=== PATIENT | male | born 1950 | race Hispanic/Latino ===

== ENCOUNTER → 2017-09-30 | Outpatient (CLI) | payer MEDICARE ==
[~2017-09-30] MED LIST: AZELASTINE HCL6 ML OS; ESIDRIX25 MG PO; FLOVENT DISKUS50 MCG; GARLIC1000 MG PO; SIMVASTATIN20 MG PO; VICODIN 5-5001 EACH PO
--- NOTE | 2017-09-30 14:52 | Diagnostic Imaging Report ---
PROCEDURE: Frontal and lateral views of the chest. COMPARISON: Chest radiograph 12/16/2014. INDICATIONS: COPD FINDINGS: Lines/tubes: None. Lungs: Low lung volumes. No evidence of pulmonary edema. There is linear subsegmental atelectasis at the right lung base. Mild patchy opacities are present in the left lung base. Pleura: There is no pleural effusion or pneumothorax. Heart and mediastinum: The cardiomediastinal silhouette is unremarkable. Bones: No acute bony abnormality. IMPRESSION: Patchy opacities at the left lung base, which may reflect atelectasis or pneumonia in the appropriate clinical setting. Subsegmental atelectasis at the right lung base. Dictated by: MARK VILLALTA M.D. on 09/30/2017 at 10:49 Electronically approved by: MARK VILLALTA M.D. on 09/30/2017 at 10:49
--- NOTE | 2017-09-30 14:52 | Diagnostic Imaging Report ---
PROCEDURE:X-RAY LEFT KNEE, THREE OR MORE VIEWS COMPARISON:None. INDICATIONS:OSTEOARTHRITIS LEFT KNEE FINDINGS: The bones are well-mineralized. No evidence of fracture or malalignment. Mild joint space narrowing is present in the medial and patellofemoral compartments with bony osteophyte formation. Small suprapatellar joint effusion. CONCLUSION: Mild medial and patellofemoral compartment osteoarthritis. Small suprapatellar joint effusion. Dictated by: MARK VILLALTA M.D. on 09/30/2017 at 10:52 Electronically approved by: MARK VILLALTA M.D. on 09/30/2017 at 10:52
== END ==
LOC: RAD 09:50
PROVIDERS: ATTEND Specialist
DX: J44.9 Chronic obstructive pulmonary disease, unspecified (principal); M17.12 Unilateral primary osteoarthritis, left knee
CPT/HCPCS: 71046

== ENCOUNTER → 2017-12-15 | Outpatient (CLI) | payer MEDICARE, OTHER ==
--- NOTE | 2017-12-15 17:47 | Diagnostic Imaging Report ---
Examination: CT Face without Contrast History: Facial pressure. Cough. Comparison studies: None Technique: Axial images were obtained through the maxillofacial region. Coronal and sagittal reconstructions obtained from the axial data. Dose modulation, iterative reconstruction, and/or weight based adjustment of the mA/kV was utilized to reduce the radiation dose to as low as reasonably achievable. Intravenous contrast: None Findings: Soft tissues: No abnormalities. Bones: No fractures or bony abnormalities. Orbits: Globes: Intact Extra or intraconal abnormalities: None. Paranasal sinuses: Mild inflammatory mucosal thickening of the bilateral maxillary and sphenoid sinuses and bilateral ethmoid air cells. Focal obstruction at the ostia of the bilateral ostiomeatal units and sphenoethmoidal recesses. Nasal cavity: Rightward deviation (5 mm). IMPRESSION: 1. No acute facial abnormality. 2. Mild inflammatory mucosal thickening of the bilateral maxillary and sphenoid sinuses and ethmoid air cells. Signed by: Dr. Yadira Hoff M.D. on 12/15/2017 5:44 PM
== END ==
LOC: CT 16:33
PROVIDERS: ATTEND Internal Medicine Critical Care Medicine
DX: R05 Cough (principal); J01.80 Other acute sinusitis
CPT/HCPCS: 70486

== ENCOUNTER → 2018-09-16 | Outpatient (CLI) | payer MEDICARE, OTHER ==
[~2018-09-16] MED LIST changes: +IOPAMIDOL 370 MG/ML 200 ML INFUS..BTL INJ ONE; +SODIUM CHLORIDE 0.9% 50ML 50 ML ONE
[2018-09-16 14:42] LABS: BLOOD UREA NITROGEN 13 mg/dL (7-26); BUN/CREATININE RATIO 15 (6-25); CREATININE, SERUM 0.89 mg/dL (0.72-1.25); EST GLOMERULAR FILTRATION RATE > 60 ML/MIN (60-)
--- NOTE | 2018-09-16 17:42 | Diagnostic Imaging Report ---
Examination:CT SOFT TISSUE NECK WITH CONTRAST History: Lump in the right anterior neck Comparison studies: None Technique: Axial images from the skull base to the thoracic inlet Coronal and sagittal reformatted images. Dose modulation, iterative reconstruction, and/or weight based adjustment of the mA/kV was utilized to reduce the radiation dose to as low as reasonably achievable. Intravenous contrast: 100mL of Isovue 370. Findings: Soft tissues: No abnormalities. Aerodigestive tract: No abnormality. Lymph nodes: No radiographically significant adenopathy. Vessels: Arteries and veins are patent. Thyroid gland: Normal in size and homogeneous. Submandibular glands: Normal in size and homogeneous. Parotid glands: Normal in size and homogeneous. Orbits: No abnormalities. Paranasal sinuses: Clear. Temporal bones: No abnormalities. Skull base and facial bones: Intact. Cervical spine: C5-C: Diffuse disc osteophyte complex and mild bilateral uncovertebral arthropathy result in moderate to severe bilateral foraminal stenosis. No canal stenosis. The remaining cervical level demonstrate no disc bulge or herniation or foraminal or canal stenosis. Visualized lung apices: No abnormalities. IMPRESSION: 1. No lesion in the right neck. 2. Mild degenerative changes at C5-C6 with moderate to severe bilateral foraminal stenosis. No canal stenosis. Signed by: Dr. Yadira Hoff M.D. on 09/16/2018 5:39 PM
== END ==
LOC: CT 13:52
PROVIDERS: ATTEND Specialist
DX: R22.1 Localized swelling, mass and lump, neck (principal)
CPT/HCPCS: 36415; 70491; 82565; 84520; Q9967

== ENCOUNTER 2019-09-16 20:48 | Emergency (ER) | payer MEDICARE, OTHER ==
[~2019-09-16] VITALS: Ht 182.9 cm; Wt 111.1 kg
[~2019-09-16 20:48] MED LIST changes: -IOPAMIDOL 370 MG/ML 200 ML INFUS..BTL INJ ONE; -SODIUM CHLORIDE 0.9% 50ML 50 ML ONE
--- NOTE | 2019-09-16 20:53 | Emergency Department Note ---
History of Present Illnes History of Present Illness History of Present Illness This is a 68 year old male sent by PCP for evaluation possible COVID-19 infection. Spouse with positive results . Past Medical/Family History Physician Review I have reviewed the patient's past medical and family history. Any updates have been documented here. Past Medical History Other Medical History: LYPHEDEMA HIGH CHOLESTEROL Other Surgery: LEFT ROTATOR CUFF LEFT KNEE SURGERY BILATERAL CARPAL TUNNEL TONSILECTOMY Other Last Tetanus: UTD Physical Exam Related Data Allergies: Coded Allergies: No Known Allergies (Unverified , 05/26/12) Physical Exam CONSTITUTIONAL Constitutional: Present well-developed, Present well-nourished, Present ill appearing HENT HENT: Present normocephalic, Present atraumatic, Present oropharynx ilana r/moist, Present nose normal HENT L/R: Present left ext ear normal, Present right ext ear normal EYES Eyes: Reports PERRL, Reports conjunctivae normal NECK Neck: Present ROM normal PULMONARY Pulmonary: Present effort normal, Present breath sounds normal CARDIOVASCULAR Cardiovascular: Present regular rhythm, Present heart sounds normal, Present capillary refill normal, Present normal rate GASTROINTESTINAL Abdominal: Present soft, Present nontender, Present bowel sounds normal GENITOURINARY Genitourinary: Present exam deferred SKIN Skin: Present warm, Present dry MUSCULOSKELETAL Musculoskeletal: Present ROM normal NEUROLOGICAL Neurological: Present alert, Present oriented x 3, Present no gross motor or sensory deficits PSYCHOLOGICAL Psychological: Present mood/affect normal, Present judgement normal Results Imaging Imaging results reviewed: Yes Impressions [place] [id number] Patient Name: TAWANA BETANCUR MR #: [id number] : 1950 Age/Sex: 68/M Req #: [id number] Adm Physician: Ordered by: SERA BENZ DO Report #: [id number] Location: Room/Bed: Procedure: [id number] DX/CHEST SINGLE (PORTABLE) Exam Date: 09/16/19 Exam Time: 0 REPORT STATUS: Signed EXAMINATION: CHEST SINGLE (PORTABLE) INDICATION: Shortness of breath COMPARISON: None FINDINGS: AP view TUBES and LINES: None. LUNGS: Subtle left lower lobe airspace consolidation. The right lung is grossly clear. PLEURA: No pleural effusion or pneumothorax. HEART AND MEDIASTINUM: The cardiomediastinal silhouette is unremarkable. BONES AND SOFT TISSUES: No acute osseous lesion. Soft tissues are unremarkable. UPPER ABDOMEN: No free air under the diaphragm. IMPRESSION: Subtle left lower lobe airspace consolidation suggestive of pneumonia. A follow-up chest x-ray is recommended in 6 weeks to document resolution. Signed by: Cornel Mcarthur MD on 09/16/2019 10:46 PM Dictated By: CORNEL MCARTHUR MD 45 Transcribed By: KRYSTAL on 09/16/192245 COPY TO: SERA BENZ DO~ Procedures 12 Lead ECG Interpretation ECG Interpretation : ECG: ECG 1 Supervisor Network Control Operators: Interpreted by ED physician Date: Sep 16, 2019 Time: 21:56 Prior ECG tracings: reviewed Rhythm: sinus rhythm Rate: normal BPM: 85 ST segments normal: Yes T waves normal: Yes Pacin% capture Clinical Impression: normal ECG Assessment & Plan Assessment & Plan Final Impression: (1) Hypoxia Home Meds Reported Medications Fluticasone Propionate (FLOVENT DISKUS) 50 Mcg Disk.w.dev 05/26/12 Azelastine Hcl (AZELASTINE HCL) 6 Ml Drops, OS BID 05/26/12 Garlic (GARLIC) 1,000 Mg Capsule, 1000 MG PO DAILY 05/26/12 Simvastatin (SIMVASTATIN) 20 Mg Tablet, 20 MG PO DAILY 05/26/12 Hydrochlorothiazide* (ESIDRIX*) 25 Mg Tab, 75 MG PO DAILY 05/26/12 Hydrocodone Bit/Acetaminophen* (VICODIN 5-500 TABLET*) 1 Each Tablet, 5 MG PO PRN 05/26/12 SERA BENZ DO Sep 16, 2019 20:53
[2019-09-16] MEDS ORDERED: ASPIRIN 81 MG CHEW TAB PO ONE (21:45)
[2019-09-16] MEDS ORDERED: ACETAMINOPHEN 325 MG TAB ONE (21:54)
[2019-09-16 22:02] LABS: BASOPHILS % 0.1 % (0.0-1.0); HEMATOCRIT 46.4 % (38.2-49.6); HEMOGLOBIN 15.6 g/dL (14.0-18.0); LYMPHOCYTES # (AUTO) 0.8 (1.0-3.2); MEAN CORPUSCULAR HEMOGLOBIN 30.1 pg (28-32); MEAN CORPUSCULAR HGB CONC 33.6 g/dL (31-35); MEAN CORPUSCULAR VOLUME 89.4 fL (81-99); MONOCYTES # (AUTO) 0.6 (0.2-0.8); MONOCYTES % 8.4 % (4.4-11.3); NEUTROPHILS # (AUTO) 5.5 (2.1-6.9); NEUTROPHILS % 80.1 % (38.7-80.0); PLATELET COUNT 150 x10e3/uL (140-360); RED BLOOD COUNT 5.19 x10e6/uL (4.3-5.7); RED CELL DISTRIBUTION WIDTH 13.3 % (11.7-14.4)
[2019-09-16 22:19] LABS: ALANINE AMINOTRANSFERASE 38 IU/L (0-55); ALBUMIN 3.6 g/dL (3.5-5.0); ALBUMIN/GLOBULIN RATIO 1.1 (0.8-2.0); ALKALINE PHOSPHATASE 57 IU/L (40-150); ANION GAP 14.9 mmol/L (8-16); BLOOD UREA NITROGEN 17 mg/dL (7-26); BUN/CREATININE RATIO 18 (6-25); CALCIUM 9.1 mg/dL (8.4-10.2); CARBON DIOXIDE 27 mmol/L (22-29); CHLORIDE 98 mmol/L (98-107); CREATINE KINASE 386 IU/L (30-200); CREATININE, SERUM 0.96 mg/dL (0.72-1.25); EST GLOMERULAR FILTRATION RATE > 60 ML/MIN (60-); GLUCOSE 105 mg/dL (74-118); POTASSIUM 3.9 mmol/L (3.5-5.1); SODIUM 136 mmol/L (136-145)
--- NOTE | 2019-09-16 22:49 | Diagnostic Imaging Report ---
EXAMINATION: CHEST SINGLE (PORTABLE) INDICATION: Shortness of breath COMPARISON: None FINDINGS: AP view TUBES and LINES: None. LUNGS: Subtle left lower lobe airspace consolidation. The right lung is grossly clear. PLEURA: No pleural effusion or pneumothorax. HEART AND MEDIASTINUM: The cardiomediastinal silhouette is unremarkable. BONES AND SOFT TISSUES: No acute osseous lesion. Soft tissues are unremarkable. UPPER ABDOMEN: No free air under the diaphragm. IMPRESSION: Subtle left lower lobe airspace consolidation suggestive of pneumonia. A follow-up chest x-ray is recommended in 6 weeks to document resolution. Signed by: Fitz Mcgowan MD on 09/16/2019 10:46 PM
[2019-09-17] MEDS ORDERED: AZITHROMYCIN 250 MG TAB PO STA (01:46)
[2019-09-17 01:58] VITALS: BP 104/72
[2019-09-17] MEDS ORDERED: ACETAMINOPHEN 325 MG TAB PO ONE (02:15)
[2019-09-17] MEDS ORDERED: AZITHROMYCIN 250 MG TAB ONE (02:21)
--- NOTE | 2019-09-23 15:49 | NUR ---
Pt informed of positive results by Dr. Flores.
== END 2019-09-17 02:31 | disposition home or self-care (01) ==
LOC: ER 21:00
DX: U07.1 COVID-19 (principal); R50.9 Fever, unspecified; R09.02 Hypoxemia; R05 Cough
CPT/HCPCS: 36415; 71045; 80053; 82550; 82553; 83880; 84484; 85025; 87635; 93005; 99284

== ENCOUNTER 2019-09-20 13:03 | Emergency (ER) | payer MEDICARE, OTHER ==
[~2019-09-20] VITALS: Ht 182.9 cm; Wt 111.1 kg
--- NOTE | 2019-09-20 14:09 | Emergency Department Note ---
History of Present Illnes History of Present Illness Chief Complaint: COVID PUI History of Present Illness This is a 68 year old male arrives to the ED with continued cough, patient tested positive Covid 19. Patient states feels a history of COPD, is not on home oxygen. Patient states the coughing got worse which prompted him to the emergency department. Arrival Mode: Car Onset (how long ago): day(s) Severity: mild Onset quality: gradual Timing of current episode: constant Treatments prior to arrival: none Past Medical/Family History Physician Review I have reviewed the patient's past medical and family history. Any updates have been documented here. Past Medical History Recent Fever: Yes Clinical Suspicion of Infectio: Yes New/Unexplained Change in Ment: No Past Medical History: Hypertension, COPD, Asthma, Cancer, Hyperlipedemia Other Medical History: PROSTATE CANCER Past Surgical History: Knee Replacement, Back Surgery Other Surgery: BILATERAL WRIST LEFT KNEE LEFT SHOULDER Social History Physically hurt or threatened: No Other Last Tetanus: UTD Review of Systems Review of Systems Constitutional: Reports as per HPI, Reports chills, Reports fever EENTM: Reports no symptoms Cardiovascular: Reports no symptoms Respiratory: Reports as per HPI, Reports cough Gastrointestinal: Reports no symptoms Genitourinary: Reports no symptoms Musculoskeletal: Reports no symptoms Integumentary: Reports no symptoms Neurological: Reports no symptoms Psychological: Reports no symptoms Endocrine: Reports no symptoms Hematological/Lymphatic: Reports no symptoms Physical Exam Related Data Allergies: Coded Allergies: No Known Allergies (Unverified , 05/26/12) Triage Vital Signs Vital Signs Date Time Temp Pulse Resp B/P (MAP) Pulse Ox O2 Delivery O2 Flow Rate FiO2 09/20/19 13:17 99.6 89 24 113/74 91 Room Air Vital signs reviewed: Yes Physical Exam CONSTITUTIONAL Constitutional: Present well-developed, Present well-nourished HENT HENT: Present normocephalic, Present atraumatic, Present oropharynx clear/moist, Present nose normal HENT L/R: Present left ext ear normal, Present right ext ear normal EYES Eyes: Reports PERRL, Reports conjunctivae normal NECK Neck: Present ROM normal PULMONARY Pulmonary: Present effort normal, Present breath sounds normal CARDIOVASCULAR Cardiovascular: Present regular rhythm, Present heart sounds normal, Present capillary refill normal, Present normal rate GASTROINTESTINAL Abdominal: Present soft, Present nontender, Present bowel sounds normal GENITOURINARY Genitourinary: Present exam deferred SKIN Skin: Present warm, Present dry MUSCULOSKELETAL Musculoskeletal: Present ROM normal NEUROLOGICAL Neurological: Present alert, Present oriented x 3, Present no gross motor or sensory deficits PSYCHOLOGICAL Psychological: Present mood/affect normal, Present judgement normal Results Imaging Imaging results reviewed: Yes Assessment & Plan Medical Decision Making MDM 66-year-old well-appearing male arrives to the ED with complaints of cough fever loss of taste and smell. Patient has a known diagnosis of Covid 19. PPatient's oxygen saturation 91% even on exertion, no evidence of tachypnea or dyspnea noted in the ED. Spoke present length about the importance of sleeping on his stomach and rotating from side to side. Z-Slime given, signs and symptoms for return discussed. Case management evaluation done emergency department- home O2 was given. Patient did not wish to be admitted to the hospital. Patient's aoc plans intelligence officer chief Dr. Leyva informed In the light of the Covid pandemic, disaster medicine care was given- Patient's imaging reviewed,- chest x-ray shows questionable patchy airspace opacities . Patient clinically appears well, outpatient pulmonary follow-up given. The red flags for return to emergency department given. Patient understands the emergency department is open at all times to serve his needs as well as the needs of the community and given that he requires no supplemental oxygen and is speaking in full sentences with no distress he is stable to go home and quarantine. Assessment & Plan Final Impression: (1) COVID-19 Depart Disposition: HOME, SELF-CARE Last Vital Signs Date Time Temp Pulse Resp B/P (MAP) Pulse Ox O2 Delivery O2 Flow Rate FiO2 09/20/19 13:17 99.6 89 24 113/74 91 Room Air Home Meds Active Scripts Azithromycin (Z-SLIME) 250 Mg Tablet, 1 PKG PO DIRECTED, #1 PKG 0 Refills Prov:SANDHIR, AMBICA, DO 09/20/19 Dexamethasone (Decadron) 6 Mg Tablet, 6 MG PO DAILY, #5 Prov:SANDHIR, AMBICA, DO 09/20/19 Reported Medications Fluticasone Propionate (FLOVENT DISKUS) 50 Mcg Disk.w.dev 05/26/12 Azelastine Hcl (AZELASTINE HCL) 6 Ml Drops, OS BID 05/26/12 Garlic (GARLIC) 1,000 Mg Capsule, 1000 MG PO DAILY 3/12/13 Simvastatin (SIMVASTATIN) 20 Mg Tablet, 20 MG PO DAILY 05/26/12 Hydrochlorothiazide* (ESIDRIX*) 25 Mg Tab, 75 MG PO DAILY 05/26/12 Hydrocodone Bit/Acetaminophen* (VICODIN 5-500 TABLET*) 1 Each Tablet, 5 MG PO PRN 05/26/12 KAMI ESTES, Sep 20, 2019 14:09
--- NOTE | 2019-09-20 14:37 | NUR ---
CALLED BY DR ESTES TO ARRANGE HOME 02 ON THIS PT SATS 88% ON ROOM AIR CHOICE LETTER SIGNED BY PT AND COPY TO PT ALONG WITH MY BUSINESS CARD CALLED AND [facility]ED ORDERS TO [facility] PH: [phone] CONFIRMATION REC'D CONFIRMED PT'S ADDRESS AND PHONE NUMBER CORRECT EXPLAINED TO PT TO CALL [employer] WHEN HE GETS HOME FOR CONCENTRATOR DELIVERY PROVIDED PT WITH PORTABLE 02 TO GET HOME
[2019-09-20] MEDS ORDERED: AZITHROMYCIN250 MG PO (14:42)
[2019-09-20] MEDS ORDERED: DECADRON6 MG PO (14:42)
--- NOTE | 2019-09-20 16:02 | Diagnostic Imaging Report ---
EXAMINATION: CHEST SINGLE (PORTABLE) INDICATION: Pneumonia COMPARISON: Chest radiograph 09/16/2019 FINDINGS: LINES/TUBES:None LUNGS:Left greater than right bibasilar patchy opacities. PLEURA:No pleural effusion or pneumothorax. MEDIASTINUM:The cardiomediastinal silhouette appears normal in size and shape. BONES/SOFT TISSUES:No acute osseous injury. ABDOMEN:No free air under the diaphragm. IMPRESSION: Left greater than right bibasilar patchy opacities may represent subsegmental atelectasis however superimposed pneumonia could also have this appearance in the proper clinical setting. Signed by: Benji Clement MD on 09/20/2019 3:58 PM
== END 2019-09-20 16:18 | disposition home or self-care (01) ==
LOC: ER 14:07
DX: U07.1 COVID-19 (principal); R05 Cough; I10 Essential (primary) hypertension; J44.9 Chronic obstructive pulmonary disease, unspecified; E78.5 Hyperlipidemia, unspecified; Z85.46 Personal history of malignant neoplasm of prostate
CPT/HCPCS: 71045; 99282